=== PATIENT | male | born 1970 | race Two or more races ===

== ENCOUNTER 2023-08-25 09:55 | Emergency (ER) | payer OTHER ==
[~2023-08-25] VITALS: Ht 177.8 cm; Wt 90.9 kg
[2023-08-25 10:03] VITALS: TEMP 98
[2023-08-25] MEDS ORDERED: LOSA-382 PO (10:04)
[2023-08-25] MEDS: KETOROLAC TROMETHAMINE 60 MG/2 ML VIAL IM ONE (11:07)
[2023-08-25] MEDS: AmLODIPine BESYLATE 5 MG TABLET PO ONE (11:08)
[2023-08-25] MEDS: CloNIDine HCL 0.1 MG TABLET PO ONE (11:08)
[2023-08-25 12:41] VITALS: BP 157/96; PULSE 70; RESP 16
[2023-08-25] MEDS ORDERED: AMLO-257 PO (13:20)
[2023-08-25] MEDS ORDERED: IBUP-1492 PO (13:29)
[2023-08-25] MEDS ORDERED: METH-659 PO (13:29)
[2023-08-25] MEDS: METHOCARBAMOL 500 MG TABLET PO ONE (13:38)
[2023-08-25] MEDS: LIDOCAINE 5% TRANSDERMAL PATCH TD ONE (13:39)
== END 2023-08-25 14:54 | disposition home or self-care (01) ==
LOC: EMS 09:56
DX: I10 Essential (primary) hypertension (principal); M54.6 Pain in thoracic spine; Z98.890 Other specified postprocedural states
CPT/HCPCS: 99284; 96372; J1885